=== PATIENT | male | born 1985 ===

== ENCOUNTER 2018-01-23 16:30 | Emergency (ER) | payer OTHER ==
[~2018-01-23] VITALS: Ht 185.4 cm; Wt 93.0 kg
== END 2018-01-23 18:21 | disposition home or self-care (01) ==
LOC: ER 16:33
DX: S62.141A Displaced fracture of body of hamate [unciform] bone, right wrist, initial encounter for closed fracture (principal); V00.131A Fall from skateboard, initial encounter; Y93.89 Activity, other specified; Y92.89 Other specified places as the place of occurrence of the external cause; Y99.8 Other external cause status
CPT/HCPCS: 73110; A4663